=== PATIENT | male | born 1945 | race Caucasian/White ===

== ENCOUNTER → 2016-12-10 | Outpatient (CLI) | payer MEDICARE, SELFPAY ==
[~2016-12-10] VITALS: Ht 180.3 cm; Wt 106.6 kg
[~2016-12-10] MED LIST: ASPIRIN325 MG PO; DOXYCYCLINE HY100 M2 PO; FISH OIL 1,0001 EAC3 PO; HUMULIN 70100 UNIT/1 SQ; HYDRALAZINE HCL50 MG PO; ISOSORBIDE MONO30 MG PO; LASIX40 MG PO; LEVAQUIN500 MG PO; LISINOPRIL20 MG PO; METOPROLOL TART50 MG PO; NEURONTIN 300300 MG PO; NITROSTAT 0.40.4 MG SL; OXYCODONE-ACET1 EAC1 PO; OXYCONTIN20 MG PO; TIZANIDINE HCL2 MG PO
[2016-12-10 09:08] LABS: HEMOGLOBIN 14.4 gm/dl (14.0-17.5); RED BLOOD COUNT 4.91 M/UL (4.20-5.50); WHITE BLOOD COUNT 7.3 K/UL (4.5-11.0)
[2016-12-10 09:25] LABS: BUN/CREATININE RATIO 17 (0-10)
== END | disposition home or self-care (01) ==
LOC: CATH 08:22
PROVIDERS: Internal Medicine
DX: I73.9 Peripheral vascular disease, unspecified (principal); R60.0 Localized edema; M79.605 Pain in left leg; I10 Essential (primary) hypertension; I25.10 Atherosclerotic heart disease of native coronary artery without angina pectoris; E11.9 Type 2 diabetes mellitus without complications; E66.9 Obesity, unspecified; Z68.32 Body mass index [BMI] 32.0-32.9, adult; I67.9 Cerebrovascular disease, unspecified; E78.5 Hyperlipidemia, unspecified; Z87.891 Personal history of nicotine dependence; Z79.82 Long term (current) use of aspirin; Z79.4 Long term (current) use of insulin; Z79.891 Long term (current) use of opiate analgesic; Z79.899 Other long term (current) drug therapy; R19.8 Other specified symptoms and signs involving the digestive system and abdomen; J30.9 Allergic rhinitis, unspecified; M19.90 Unspecified osteoarthritis, unspecified site; Z98.61 Coronary angioplasty status; Z86.73 Personal history of transient ischemic attack (TIA), and cerebral infarction without residual deficits; K21.9 Gastro-esophageal reflux disease without esophagitis; Z96.659 Presence of unspecified artificial knee joint; G47.33 Obstructive sleep apnea (adult) (pediatric); R56.9 Unspecified convulsions; R40.0 Somnolence; Z79.84 Long term (current) use of oral hypoglycemic drugs
CPT/HCPCS: 36200; 36415; 75630; 80048; 82962; 85025; 85610; 85730; J1644; J2250; J2405; J3010; J7030; Q9965

== ENCOUNTER → 2016-12-26 | Outpatient (CLI) | payer MEDICARE, SELFPAY | LOC: HEART 5 12-12 13:30 | DX: I73.9 Peripheral vascular disease, unspecified (principal); M79.605 Pain in left leg ==